=== PATIENT | female | born 1980 | race American Indian/Alaskan Native ===

== ENCOUNTER 2018-08-21 17:46 | Emergency (ER) | payer SELFPAY ==
[2018-08-21 17:56] VITALS: BP 117/74
[2018-08-21 19:44] LABS: HCG Qualitative,Urine Negative (Negative)
[2018-08-21 19:46] LABS: Bilirubin,Urine NEG (Negative); Blood,Urine LG (Negative); Color,Urine Yellow (Yellow); Mucus,Urine 3+ /HPF; RBC,Urine > 182.0 /HPF (0.0-6.0)
--- NOTE | 2018-08-21 20:59 | Emergency Department Report ---
ED Headache HPI - General Chief Complaint: Headache Stated Complaint: DIZZY/WEAK/LIGHT HEADED Time Seen by Provider: 08/21/18 20:45 - History of Present Illness Initial Comments: this is 38 y/o aaf. who presents for headache dizziness x 5 days symptoms are exacerbate by postion there is no fever no chills does endorse URI symptoms including post nasal drip bilat ear pain, sinus pressure. Timing/Duration: 1 week Quality: mild Recent Head Trauma: no recent headache/trauma Modifying Factors: improves with: cold therapy Associated Symptoms: nasal congestion, nasal drainage, sinus infection Allergies/Adverse Reactions: Allergies No Known Allergies Allergy (Unverified 07/13/16 20:33) Home Medications: Ambulatory Orders Cyclobenzaprine [Flexeril] 10 mg PO TID PRN #15 tablet 07/14/16 Ibuprofen [Motrin 800 MG tab] 800 mg PO Q8HR PRN #25 tablet 07/14/16 Amoxicillin/Potassium Clav [Augmentin 875-125 Tablet] 1 each PO BID #20 tablet 08/21/18 Cetirizine HCl [ZyrTEC] 10 mg PO DAILY #30 capsule 08/21/18 Ibuprofen 800 mg PO TID PRN #30 tablet 08/21/18 Oxymetazoline 0.05% [Afrin] 2 spray NS BID 3 Days #1 bottle 08/21/18 ED Review of Systems ROS: Stated complaint: DIZZY/WEAK/LIGHT HEADED Other details as noted in HPI Constitutional: denies: chills, fever Eyes: denies: eye pain, eye discharge, vision change ENT: ear pain, congestion Respiratory: denies: cough, shortness of breath, wheezing Cardiovascular: denies: chest pain, palpitations Endocrine: no symptoms reported Gastrointestinal: denies: abdominal pain, nausea, diarrhea Genitourinary: denies: urgency, dysuria, discharge Musculoskeletal: denies: back pain, joint swelling, arthralgia Skin: denies: rash, lesions Neurological: denies: headache, weakness, paresthesias, vertigo Psychiatric: denies: anxiety, depression Hematological/Lymphatic: denies: easy bleeding, easy bruising ED Past Medical Hx - Past Medical History Previous Medical History?: No - Surgical History Past Surgical History?: Yes Additional Surgical History: tonsillectomy - Social History Smoking Status: Former Smoker Substance Use Type: None - Medications Home Medications: Home Medications Medication Instructions Recorded Confirmed Last Taken Type Cyclobenzaprine [Flexeril] 10 mg PO TID PRN #15 tablet 07/14/16 Unknown Rx Ibuprofen [Motrin 800 MG tab] 800 mg PO Q8HR PRN #25 tablet 07/14/16 Unknown Rx Amoxicillin/Potassium Clav 1 each PO BID #20 tablet 08/21/18 Unknown Rx [Augmentin 875-125 Tablet] Cetirizine HCl [ZyrTEC] 10 mg PO DAILY #30 capsule 08/21/18 Unknown Rx Ibuprofen 800 mg PO TID PRN #30 tablet 08/21/18 Unknown Rx Oxymetazoline 0.05% [Afrin] 2 spray NS BID 3 Days #1 bottle 08/21/18 Unknown Rx ED Physical Exam - General Limitations: No Limitations General appearance: alert, in no apparent distress - Head Head exam: Present: atraumatic, normocephalic - Eye Eye exam: Present: normal appearance, PERRL, EOMI Pupils: Present: normal accommodation - ENT ENT exam: Present: mucous membranes moist - Expanded ENT Exam Expanded Ear exam: Present: normal external inspection TM/Canal exam: Erythema: Right TM, Left TM Mouth exam: Absent: trismus Teeth exam: Present: normal inspection (Marquita Sheppard physical) Throat exam: Positive: tonsillar erythema, other (uvula mild line no stridor no wheezing ). Negative: tonsillomegaly, tonsillar exudate, R peritonsillar mass, L peritonsillar mass - Neck Neck exam: Present: normal inspection, full ROM. Absent: tenderness, meningismus, lymphadenopathy, thyromegaly - Respiratory Respiratory exam: Present: normal lung sounds bilaterally. Absent: respiratory distress, wheezes, stridor, chest wall tenderness - Cardiovascular Cardiovascular Exam: Present: regular rate, normal rhythm, normal heart sounds. Absent: systolic murmur, diastolic murmur, rubs, gallop - GI/Abdominal GI/Abdominal exam: Present: soft, normal bowel sounds. Absent: tenderness, bruit, hernia - Rectal Rectal exam: Present: deferred - Extremities Exam Extremities exam: Present: normal inspection, full ROM, normal capillary refill. Absent: tenderness, pedal edema, joint swelling, calf tenderness - Back Exam Back exam: Present: normal inspection, full ROM. Absent: tenderness, CVA tenderness (R), CVA tenderness (L), muscle spasm, paraspinal tenderness, vertebral tenderness, rash noted - Neurological Exam Neurological exam: Present: alert, oriented X3, CN II-XII intact, normal gait, reflexes normal - Expanded Neurological Exam Expanded Patient oriented to: Present: person, place, time Speech: Present: fluid speech Cranial nerves: EOM's Intact: Normal, Gag Reflex: Normal, Tongue Deviation: Normal, Nystagmus: Normal, Facial Sensation: Normal Cerebellar function: Finger to Nose: Normal, Heel to Velazquez: Normal, Romberg: Normal Upper motor neuron: Brock Neglect: Normal, Pronator Drift: Normal, Babinski Sign: Normal, Sensory Extinction: Normal Sensory exam: Upper Extremity Light Touch: Normal, Upper Extremity Pin Prick: Normal, Upper Extremity Temperature: Normal, UE 2 Point Discrimination: Normal, Lower Extremity Light Touch: Normal, Lower Extremity Pin Prick: Normal, Lower Extremity Temperature: Normal, LE 2 Point Discrimination: Normal Motor strength exam: RUE: 5, LUE: 5, RLE: 5, LLE: 5 Best Eye Response (Kenvil): (4) open spontaneously Best Motor Response (Kenvil): (6) obeys commands Best Verbal Response (Shakir): (5) oriented Kenvil Total: 15 - Psychiatric Psychiatric exam: Present: normal affect, normal mood - Skin Skin exam: Present: warm, dry, intact, normal color. Absent: rash ED Course Vital Signs 08/21/18 17:52 Temperature 99.2 F Pulse Rate 77 Respiratory 20 Rate Blood Pressure 117/74 O2 Sat by Pulse 98 Oximetry ED Medical Decision Making - Lab Data Labs 08/21/18 19:18 Urine Color Yellow Urine Turbidity Cloudy Urine pH 6.0 Ur Specific [place] 1.026 Urine Protein 30 mg/dl Urine Glucose (UA) Neg Urine Ketones Neg Urine Blood Lg Urine Nitrite Neg Ur Reducing Substances Not Reportable Urine Bilirubin Neg Urine Ictotest Not Reportable Urine Urobilinogen 2.0 Ur Leukocyte Esterase Neg Urine WBC (Auto) 11.0 H Urine RBC (Auto) > 182.0 U Epithel Cells (Auto) 9.0 Urine Mucus 3+ Urine HCG, Qual Negative - EKG Data EKG shows normal: sinus rhythm Rate: normal - EKG Data When compared to previous EKG there are: other (no previous EKG ) Interpretation: normal EKG (interp by ed attending ) - Medical Decision Making symptoms are resolved with medications given in ed, there is no cp , no sob, no wheezing no rhonchi, pt with current menses pt does not want cxr , given exam this is reasonable as sinusitis is primary diagnosis will tx of sinusitis pt will follow up with pcp in 2-3 days return to ed if symptoms worsen. pt verbalized agreement and understanding of same. Critical care attestation.: If time is entered above; I have spent that time in minutes in the direct care of this critically ill patient, excluding procedure time. ED Disposition Clinical Impression: URI, acute Sinusitis Qualifiers: Sinusitis location: maxillary Chronicity: acute Recurrence: non-recurrent Qualified Code(s): J01.00 - Acute maxillary sinusitis, unspecified Disposition: TO HOME OR SELFCARE Is pt being admited?: No Does the pt Need Aspirin: No Condition: Stable Instructions: Sinusitis (ED) Prescriptions: Amoxicillin/Potassium Clav [Augmentin 875-125 Tablet] 1 each PO BID #20 tablet Cetirizine HCl [ZyrTEC] 10 mg PO DAILY #30 capsule Ibuprofen 800 mg PO TID PRN #30 tablet PRN Reason: pain Oxymetazoline 0.05% [Afrin] 2 spray NS BID 3 Days #1 bottle Referrals: DOC,ED, MD [Primary Care Provider] - 3-5 Days Forms: Work/School Release Form(ED) Time of Disposition: 21:46
[2018-08-21] MEDS ORDERED: IBUPROFEN PO ONE (21:05)
[2018-08-21] MEDS ORDERED: DECADRON IM ONE (21:05)
[2018-08-21] MEDS ORDERED: AUGMENTIN 875 MG PO ONE (21:05)
[2018-08-21] MEDS ORDERED: BENADRYL PO ONE (21:06)
== END 2018-08-21 22:00 | disposition home or self-care (01) ==
LOC: ED 17:46
DX: J06.9 Acute upper respiratory infection, unspecified (principal); J01.90 Acute sinusitis, unspecified; Z90.89 Acquired absence of other organs; Z87.891 Personal history of nicotine dependence
CPT/HCPCS: 81001; 81025; 93005; 93010; 96372; 99283; J1100

== ENCOUNTER 2018-10-15 15:39 | Emergency (ER) | payer OTHER ==
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
[2018-10-15] MEDS ORDERED: FLEXERIL PO ONE (17:39)
[2018-10-15] MEDS ORDERED: NORCO 5/325 PO ONE (17:39)
[2018-10-15] MEDS ORDERED: DECADRON IM ONE (17:39)
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
[2018-10-15 18:50] VITALS: BP 100/57
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
== END 2018-10-15 18:51 | disposition home or self-care (01) ==
LOC: ED 15:39
DX: M79.604 Pain in right leg (principal); M79.641 Pain in right hand; M54.5 Low back pain; F17.200 Nicotine dependence, unspecified, uncomplicated; V49.59XA Passenger injured in collision with other motor vehicles in traffic accident, initial encounter; Y93.89 Activity, other specified; Y92.488 Other paved roadways as the place of occurrence of the external cause; Y99.8 Other external cause status
CPT/HCPCS: 72040; 72100; 73560; 96372; 99283; J1100

== ENCOUNTER 2020-04-08 13:35 | Emergency (ER) | payer SELFPAY ==
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
[2020-04-08 20:15] VITALS: BP 122/77
== END 2020-04-08 19:55 | disposition home or self-care (01) ==
LOC: ED 13:35
DX: S16.1XXA Strain of muscle, fascia and tendon at neck level, initial encounter (principal); S46.912A Strain of unspecified muscle, fascia and tendon at shoulder and upper arm level, left arm, initial encounter; S39.012A Strain of muscle, fascia and tendon of lower back, initial encounter; F17.200 Nicotine dependence, unspecified, uncomplicated; Z90.49 Acquired absence of other specified parts of digestive tract; Z90.89 Acquired absence of other organs; V89.2XXA Person injured in unspecified motor-vehicle accident, traffic, initial encounter; Y93.89 Activity, other specified; Y92.410 Unspecified street and highway as the place of occurrence of the external cause; Y99.8 Other external cause status
CPT/HCPCS: 99282